=== PATIENT | female | born 1990 | race Hispanic/Latino ===

== ENCOUNTER 2017-05-23 07:32 | Inpatient (IN) | payer BC ==
[~2017-05-23] VITALS: Ht 165.1 cm; Wt 130.0 kg
[2017-05-23] VITALS (13 sets, daily range): BP systolic 94–159; BP diastolic 57–99
[~2017-05-23 07:32] MED LIST: IBUPROFEN600 MG PO; PRENATAL TABLE1 EAC3 PO
[2017-05-23 09:27] LABS: EOSINOPHIL (%) 0.9 % (0-5); EOSINOPHIL COUNT 0.1 K/uL (0-0.3); HEMATOCRIT 33.3 % (36.0-46.0); IMMATURE GRANULOCYTE (%) 0.4 % (0.0-0.7); INSTRUMENT ABS NEUTROPHIL CT 7.2 K/uL; MCH 26.6 PG (29.0-34.0); MCHC 32.4 G/DL (30.0-36.0); MEAN PLAT.VOLUME 11.4 uM^3 (9.5-12.4); MONOCYTE (%) 10.2 % (3-12); MONOCYTE COUNT 1.1 K/uL (0-0.8); NEUTROPHIL (%) 69.3 % (45-76); NEUTROPHIL COUNT 7.2 K/uL (1.8-6.4); PLATELET COUNT 184 K/uL (156-360); RBC DIS.WIDTH-CV 14.4 % (11.8-14.6); RBC DIS.WIDTH-SD 42.2 % (39-53); RED BLOOD COUNT 4.06 M/uL (3.80-5.20); WHITE BLOOD COUNT 10.3 K/uL (4.1-10.2)
[2017-05-23] MEDS ORDERED: IBUPROFEN800 MG PO (16:54)
[2017-05-23] MEDS ORDERED: PRENATAL TABLE1 EAC3 PO (17:41)
[2017-05-24 07:36] VITALS: BP 95/56
[2017-05-24] MEDS ORDERED: MOTRIN800 MG PO (11:46)
[2017-05-24 15:00] VITALS: BP 125/89
== END 2017-05-24 20:15 | disposition home or self-care (01) | DRG 775 ==
LOC: LDRP-OP 07:32 → 2WEST 07:33 → LDRP-OP 06-18 16:36
PROVIDERS: Advanced Practice Midwife
PROC: 0HQ9XZZ Repair Perineum Skin, External Approach (ICD-10-PCS; principal; 2017-05-23)
PROC: 10E0XZZ Delivery of Products of Conception, External Approach (ICD-10-PCS; principal; 2017-05-23)
PROC: 3E033VJ Introduction of Other Hormone into Peripheral Vein, Percutaneous Approach (ICD-10-PCS; 2017-05-23)
PROC: 10907ZC Drainage of Amniotic Fluid, Therapeutic from Products of Conception, Via Natural or Artificial Opening (ICD-10-PCS; 2017-05-23)
PROC: 00HU33Z Insertion of Infusion Device into Spinal Canal, Percutaneous Approach (ICD-10-PCS; 2017-05-23)
PROC: 3E0S3CZ (ICD-10-PCS; 2017-05-23)
DX: O70.0 First degree perineal laceration during delivery (principal); O48.0 Post-term pregnancy; O69.81X0 Labor and delivery complicated by cord around neck, without compression, not applicable or unspecified; Z3A.40 40 weeks gestation of pregnancy; Z37.0 Single live birth; O99.513 Diseases of the respiratory system complicating pregnancy, third trimester; J45.909 Unspecified asthma, uncomplicated; O99.214 Obesity complicating childbirth; E66.01 Morbid (severe) obesity due to excess calories; Z68.41 Body mass index [BMI] 40.0-44.9, adult; O99.344 Other mental disorders complicating childbirth; F32.9 Major depressive disorder, single episode, unspecified; F41.9 Anxiety disorder, unspecified; F43.10 Post-traumatic stress disorder, unspecified; O99.334 Smoking (tobacco) complicating childbirth; F17.200 Nicotine dependence, unspecified, uncomplicated; Z86.32 Personal history of gestational diabetes
CPT/HCPCS: 85025; C1755; J1050; J3010; J7120